=== PATIENT | female | born 1995 | race Caucasian/White ===

== ENCOUNTER 2019-03-19 11:37 | Day surgery (SDC) | payer OTHER, MEDICAID ==
[2019-03-19] MEDS ORDERED: PROPOFOL 20 ML (12:40)
[2019-03-19] MEDS ORDERED: LIDOCAINE 2% (SDV) 5 ML INJ (12:40)
[2019-03-19] MEDS ORDERED: morphine (1 MG/ML) 10ML SYRINGE IV (13:00)
[2019-03-19] MEDS ORDERED: ONDANSETRON 4 MG INJ IV (13:00)
== END 2019-03-19 14:48 | disposition home or self-care (01) ==
LOC: GIL 11:37
DX: K21.9 Gastro-esophageal reflux disease without esophagitis (principal); K29.60 Other gastritis without bleeding; J45.909 Unspecified asthma, uncomplicated
CPT/HCPCS: 43239; 84703; 88305; 88312